=== PATIENT | male | born 1990 | race Caucasian/White ===

== ENCOUNTER 2019-05-26 07:50 | Day surgery (SDC) | payer OTHER ==
--- OUTSIDE RECORDS SUMMARY | 2019-05-26 07:53 | XMS REPORT ---
:1990 [facility] Address [address] [place] [address] Dr. Mcallister [address] [place] [id number] Care Team Providers Name Role Phone Unavailable Unavailable Unavailable Problems This patient has no known problems. Allergies, Adverse Reactions, Alerts This patient has no known allergies or adverse reactions. Medications This patient has no known medications.
--- OUTSIDE RECORDS SUMMARY | 2019-05-26 07:53 | XMS REPORT | Summary of Care ---
:1990 Author Organization [facility] Address [address] [place] [id number] Care Team Providers Name Role Phone Prudencio Bedoya Primary Care Provider Reason for Visit Reason Comments Back Pain Auth/Cert Status Reason Specialty Diagnoses / Referred By Referred To Procedures Contact Contact [facility] [address] [facility] [place] [address] Encounter Details Date Type Department Care Team Description 11/22/2018 Emergency [facility] Christiano Lopez DO Acute right-sided Department [address] [place] [address]. thoracic back pain [address] [facility] [address]11 (Primary Dx) [address] [id number] Allergies No Known Allergiesdocumented as of this encounter (statuses as of 11/22/2018) Medications No known medicationsdocumented as of this encounter (statuses as of 11/22/2018) Active Problems No known active problemsdocumented as of this encounter (statuses as of 2018) Social History Tobacco Use Types Packs/Day Years Used Date Never Assessed Sex Assigned at Date Recorded Not on file Job Start Date Occupation Industry Not on file Not on file Not on file Travel History Travel Start Travel End No recent travel history available. documented as of this encounter Last Filed Vital Signs Vital Sign Reading Time Taken Comments Blood Pressure 155/81 11/22/2018 1:28 PM CDT Pulse 94 11/22/2018 1:28 PM CDT Temperature 36.9 C (98.4 F) 11/22/2018 1:28 PM CDT Respiratory Rate 20 11/22/2018 1:28 PM CDT Oxygen Saturation 98% 11/22/2018 1:28 PM CDT Inhaled Oxygen Concentration - - Weight 131.5 kg (290 lb) 11/22/2018 1:28 PM CDT Height 175.3 cm (5' 9") 11/22/2018 1:28 PM CDT Body Mass Index 42.83 11/22/2018 1:28 PM CDT documented in this encounter Discharge Instructions Christiano Figueroa DO - 11/22/2018 DIAGNOSIS Diagnoses that have been ruled out: None Diagnoses that are still under consideration: None Final diagnoses: Acute right-sided thoracic back pain NO LIFE-THREATENING FINDINGS ON TODAY'S EXAM. PROCEDURES IN THE ER TODAY: No orders of the defined types were placed in this encounter. MEDICATIONS ADMINISTERED IN THE ER TODAY AND DISCHARGE MEDICATIONS: No orders of the defined types were placed in this encounter. FOLLOW-UP RECOMMENDATIONS: RECOMMEND FOLLOW-UP WITH A PRIMARY CARE PROVIDER OR SPECIALIST IN 2-5 DAYS, ESPECIALLY IF NO IMPROVEMENT IN SYMPTOMS. MAY FOLLOW-UP WITH A PROVIDER OF YOUR CHOICE, SUCH : 1. A PHYSICIAN OF YOUR CHOICE 2. [facility], . LOCATIONS [facility] 3. [facility], [address] [place] [address]; OR, IF YOU WISH TO FOLLOW-UP WITHIN THE [facility], MAY TRY THESE OPTIONS (CLINIC APPOINTMENTS AVAILABLE ON DFSE-VR-PULR BASIS): 1. SCHEDULE AN APPOINTMENT ONLINE AT WWW[facility] 2. OR CALL THE [facility] AT OR 3. OR CALL YOUR [facility] PHYSICIAN'S OFFICE DIRECTLY IF YOU ARE ALREADY AN ESTABLISHED [facility] PATIENT. RETURN TO ER FOR WORSENING OF SYMPTOMS. AttachmentsThe following attachments cannot be sent through Care Everywhere.Back Pain, Relieving (Maltese)documented in this encounter Plan of Treatment Health Maintenance Due Date Last Done Comments VARICELLA VACCINES (1 of 2 - 13+ 11/13/2003 2-dose series) DTaP,Tdap,and Td Vaccines (1 - 2009 Tdap) INFLUENZA VACCINE 12/11/2018 PNEUMOCOCCAL 0-64 YEARS COMBINED Aged Out No longer eligible based on SERIES patient's age to complete this topic documented as of this encounter Results Not on filedocumented in this encounter Visit Diagnoses Diagnosis Acute right-sided thoracic back pain - Primary documented in this encounter Insurance Payer Benefit Plan Subscriber ID Effective Dates Phone Address Type / Group [facility] [id number] 2018-Kerry [phone] [address] PPO/POS [place] - OUT OF t [id number] [place] [address] documented as of this encounter
[2019-05-26] MEDS ORDERED: Ringers Lactate 1,000 ML IV ONE (08:23)
[2019-05-26] MEDS ORDERED: propofoL 200 MG/20 ML VIAL IV ONE ×3 (09:33→10:02)
[2019-05-26] MEDS ORDERED: MIDAZOLAM HCL 2 MG/2 ML INJ ONE ×3 (09:33→10:06)
[2019-05-26] MEDS ORDERED: LIDOCAINE 2% MPF 5 ML VIAL ONE ×2 (09:33→09:43)
[2019-05-26] MEDS ORDERED: FENTANYL CITR 100 MCG/2 ML ONE (09:43)
[2019-05-26] MEDS ORDERED: ONDANSETRON 4 MG/2 ML VIAL ONE ×2 (09:44→10:05)
[2019-05-26] MEDS: OFLOXACIN OPH 0.3%-5 ML BTL ONE ×2 (10:25→10:40)
--- NOTE | 2019-05-26 10:48 | P.OP ---
Pre-Op Diagnosis: Chronic nonsuppurative otitis media, Conductive hearing loss, Atrophic flaccid tympanic membrane with retraction Post-Op Diagnosis: Same Procedure: Bilateral myringotomy and tympanostomy tube placement Anesthesia: Other (General via LMA) Fluids/ Blood products: Other (crystalloid 600ml) Estimated blood loss: Nil Specimen: None Findings: Thin mucoid (left), Thick mucoid (right) Implants: Stephens T tympanostomy tube Indication: Patient with recurrent acute otitis media and persistent middle ear fluid in spite of good medical management. Details of Operation: The patient was brought to the operating room and placed under general anesthesia via inhalation mask. The left ear was visualized under the operating microscope. A speculum aided visualization. Cerumen was removed from the canal using a wire curette. A myringotomy incision was made in the anterior-inferior quadrant and thin mucoidfluid was aspirated from the middle ear space. A Stephens T tympanostomy tube was positioned across the incision using the alligator and pick. During placement of the tube, the implant was dislodged to the middle ear. Attempt to retrieve the tube with alligator forceps was not successful and tube was displaced more anteriorly and superiorly in to the middle ear. A superior myringotomy was made and the tube is removed with an up-biting cup forcepts. The tube is then replaced in the anterior-inferior myringotomy and positioned appropriately. Ofloxacin ophthalmic drops were instilled and a cotton ball placed at the meatus. A similar procedure was performed on the right side. Cerumen was removed from the canal using a wire curette. A myringotomy incision was made in the anterior -inferior quadrant and very thick dark yellow/light brown mucoid fluid was aspirated from the middle ear space. A Stephens T tympanostomy tube was positioned across the incision using the alligator and pick. Ofloxacin ophthalmic drops were instilled and a cotton ball placed at the meatus. Disposition: The patient was then awakened from anesthesia and taken to the recovery room in stable condition.
[2019-05-26] MEDS ORDERED: IBUPROFEN 400 MG TAB PO ONE (11:35)
[2019-05-26] MEDS ORDERED: IBUPROFEN 400 MG TAB ONE (11:36)
[2019-05-26 12:51] VITALS: BP 120/76; TEMP 97.2; O2SAT 94
== END 2019-05-26 11:50 | disposition home or self-care (01) ==
LOC: OR 07:50
PROVIDERS: ATTEND Otolaryngology
PROC: 099570Z Drainage of Right Middle Ear with Drainage Device, Via Natural or Artificial Opening (ICD-10-PCS; 2019-05-26)
PROC: 099670Z Drainage of Left Middle Ear with Drainage Device, Via Natural or Artificial Opening (ICD-10-PCS; principal; 2019-05-26 09:15)
DX: H65.23 Chronic serous otitis media, bilateral (principal); H65.499 Other chronic nonsuppurative otitis media, unspecified ear; H73.819 Atrophic flaccid tympanic membrane, unspecified ear; H90.0 Conductive hearing loss, bilateral; J34.2 Deviated nasal septum; J30.9 Allergic rhinitis, unspecified; F17.200 Nicotine dependence, unspecified, uncomplicated; Z82.49 Family history of ischemic heart disease and other diseases of the circulatory system
CPT/HCPCS: 69436; J2704 ×2; J2250 ×2; J3010; J7120; J2405 ×2